=== PATIENT | male | born 1970 | race Caucasian/White ===

== ENCOUNTER 2016-11-27 14:14 | Observation (INO) | payer OTHER ==
[~2016-11-27] VITALS: Ht 190.5 cm; Wt 113.4 kg
[~2016-11-27 14:14] MED LIST: AMOXICILLIN500 MG PO; FLEXERIL10 MG PO; NAPROXEN500 MG PO; PROAIR HFA0.09 MG/Ac INH; ZANTAC150 M1 PO
--- NOTE | 2016-11-27 14:26 | NUR ---
STATES TIGHTNESS IN CHEST DURING LUNCH TODAY. UNABLE TO TAKE DEEP BREATH, BECAME VERY HOT WITH H/A AND LIGHTHEADED. STATES PAIN GOES INTO HIS BACK. STATES PAIN HAS GOTTEN A LITTLE BETTER
--- NOTE | 2016-11-27 14:37 | NUR ---
APPRECIATE TRIAGE NOTE. PT AMBULATORY TO ROOM 16 WITH SPOUSE. OFFERS NO COMPLAINTS AT THIS TIME. CHANGING INTO HOSPITAL GOWN AND PLACED ON CM AT THIS TIME.
--- NOTE | 2016-11-27 14:43 | RADIOLOGY REPORT ---
EXAMINATION: XR CHEST CLINICAL INFORMATION: Chest pain. COMPARISON: None. TECHNIQUE: PA and lateral views of the chest were obtained. FINDINGS: The lungs are well-expanded and clear without focal airspace consolidation. No pleural effusions or pneumothoraces are identified. Cardiomediastinal contours are within normal limits. Soft tissues are unremarkable. No acute osseous abnormality is identified. IMPRESSION: No acute pulmonary process.
--- NOTE | 2016-11-27 14:53 | NUR ---
BLOOD DRAWN AND SENT TO LAB. SST,LAV,BLUE AND SCANT AMOUNT IN TORRES
[2016-11-27 15:00] LABS: ABSOLUTE BASOPHIL COUNT 0 /CUMM (0.0-0.2); ABSOLUTE EOSINOPHIL COUNT 0.2 /CUMM (0.0-0.7); ABSOLUTE GRANULOCYTE CT 5.7 /CUMM (1.4-6.5); ABSOLUTE LYMPH COUNT 1.6 /CUMM (1.2-3.4); ABSOLUTE MONOCYTE COUNT 0.6 /CUMM (0.10-0.60); BASOPHIL % 0.4 % (0.0-2.0); GRANULOCYTE % 69.5 % (42.2-75.2); HEMATOCRIT 42.3 % (42-52); MEAN CORPUSCULAR HGB 29.4 PG (27.0-31.0); MEAN CORPUSCULAR HGB CONC 33.8 G/DL (33.0-37.0); MEAN CORPUSCULAR VOLUME 87.1 FL (80.0-94.0); MEAN PLATELET VOLUME 6.5 FL (7.4-10.4); PLATELET COUNT 289 /CUMM (130-400); RBC DISTRIBUTION WIDTH 13.5 % (11.5-14.5); RED BLOOD CELL CT 4.86 /CUMM (4.70-6.10); WHITE BLOOD CELL COUNT 8.2 /CUMM (4.8-10.8)
--- NOTE | 2016-11-27 15:16 | NUR ---
PA STUDENT CHLOÉ PT.
--- NOTE | 2016-11-27 15:31 | ED CARDIAC/CP/PALPITATIONS ---
History of Present Illness General Chief Complaint: Chest Pain Stated Complaint: CP Source: patient Exam Limitations: no limitations Vital Signs & Intake/Output Vital Signs & Intake/Output Vital Signs Date Time Temp Pulse Resp B/P B/P Pulse O2 O2 Flow FiO2 Mean Ox Delivery Rate 11/28 0650 97.0 117 20 120/90 96 Room Air 11/28 0000 Room Air 11/27 2030 97.7 73 20 148/90 94 Room Air 11/28 2007 97.5 72 18 134/76 98 Room Air Room Air 11/27 1820 97.4 68 140/83 97 Room Air 11/27 1426 97.5 81 20 125/76 95 Room Air ED Intake and Output 11/28 0000 11/27 1200 Intake Total 240 Output Total Balance 240 Intake, Oral 240 Patient 250 lb Weight Weight Reported by Patient Measurement Method Allergies Coded Allergies: oxycodone (itching 11/27/16) Reconcile Medications Ranitidine HCl (Zantac) 150 MG TABLET 2 TAB PO QPM GI (Reported) Triage Note: STATES TIGHTNESS IN CHEST DURING LUNCH TODAY. UNABLE TO TAKE DEEP BREATH, BECAME VERY HOT WITH H/A AND LIGHTHEADED. STATES PAIN GOES INTO HIS BACK. STATES PAIN HAS GOTTEN A LITTLE BETTER Triage Nurses Notes Reviewed? yes Onset: Abrupt Duration: hour(s): Timing: multiple episodes today Quality/Severity: moderate, severe, sharp Radiation: back Activities at Onset: none HPI: 46-year-old male comes into emergency room with complaints of left-sided chest pain has been going on for the past few hours intermittently. Symptoms began around 12:45 PM. Left sided pain. Sharp. Radiates between his shoulder blades in his back. There is significant family history with multiple uncles having MIs at a young age. Denies any vomiting. Denies any shortness of breath. Nothing seems to make the symptoms better or worse. Denies any belching or burping. Denies any upper abdominal pain. Denies any other associated symptoms. (LUIS FERNANDO DICKEY,HANNAH) Past History Travel History Traveled to [place] past 21 day No Medical History Any Pertinent Medical History? 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 No (HANNAH POZO) Review of Systems Review of Systems Constitutional: Reports: no symptoms. EENTM: Reports: no symptoms. Respiratory: Reports: no symptoms. Cardiovascular: Reports: see HPI. GI: Reports: no symptoms. Genitourinary: Reports: no symptoms. Musculoskeletal: Reports: no symptoms. Skin: Reports: no symptoms. Neurological/Psychological: Reports: no symptoms. Hematologic/Endocrine: Reports: no symptoms. Immunologic/Allergic: Reports: no symptoms. All Other Systems: Reviewed and Negative (HANNAH POZO) Physical Exam Physical Exam General Appearance: well developed/nourished, alert, awake Head: atraumatic Eyes: Bilateral: normal appearance. Ears, Nose, Throat: normal ENT inspection, hearing grossly normal Neck: normal inspection Respiratory: normal breath sounds, no respiratory distress Cardiovascular: regular rate/rhythm Gastrointestinal: soft, non-tender Back: normal inspection Extremities: normal range of motion, no edema Neurologic/Psych: awake, alert Skin: intact, normal color Core Measures ACS in differential dx? Yes Severe Sepsis Present: No Septic Shock Present: No All Positive = PERC Ruled Out: Positive: age < 50 years, heart rate < 100 bpm, O2 sat > 94%, no hemoptysis, no hormone use, no prior DVT or PE, no unilateral leg swellin, no surgery/trauma w/ in 4w. Wells Criteria Score: 0 (HANNAH POZO) Progress Differential Diagnosis: AMI, aortic dissection, cholecystitis, costochondritis, musculoskeletal pain, myocarditis, pancreatitis, pericarditis, pneumonia, pneumothorax, pulmonary embolism, PUD/GERD, rib fracture, sepsis, unstable angina Plan of Care: Orders Procedure Date/time Status Nothing by Mouth 11/28 B Active ECHOCARDIOGRAM 11/28 2012 Active LIPID PANEL 11/28 599 Complete HIGH SENSITIVITY CRP 11/28 06 Complete CBC WITHOUT DIFFERENTIAL 11/28 06 Complete BASIC ELECTROLYTES PLUS BUN&CR 11/28 06 Complete TROPONIN LEVEL 11/28 0100 Complete EKG 11/28 0100 Active STRESS TEST W/NUCLEAR IMAGING 11/28 UNK Active Regular Diet 11/27 D Complete Vital Signs 11/27 2141 Active Teach/Educate 11/27 2141 Active Pain Treatment and Response 11/27 2141 Active Nutritional Intake, Monitor 11/27 2141 Active Isolation 11/27 2141 Active Intake & Output 11/27 2141 Active Patient Care Conference 11/27 2141 Active Activity/Ambulation 11/27 2141 Active Pathway - chart 11/27 2016 Active Add-on Test (ER Only) 11/28 2011 Active Patient Data 11/27 1901 Active TROPONIN LEVEL 11/27 1850 Complete EKG 11/27 1850 Active OXYGEN SETUP (GEN) 11/27 1838 Active Saline Lock 11/[address] in observation 11/27 1838 Active Vital Signs 11/27 1838 Active Activity/Ambulation 11/27 1838 Active Code Status 11/27 1838 Active Telemetry/Bus Inspector 11/27 1725 Active THYROID STIMULATING HORMONE 11/27 1450 Active THYROXINE 11/27 1450 Active GLYCOSYLATED HGB 11/27 1450 Active Intake & Output 11/27 1447 Active TROPONIN LEVEL 11/27 1427 Active COMPREHENSIVE METABOLIC PANEL 11/27 1427 Active CBC WITHOUT DIFFERENTIAL 11/27 1427 Complete EKG 11/27 1416 Active Pathway - chart 11/27 UNK Active VTE Mechanical Prophylaxis 11/27 UNK Active CASE MANAGEMENT CONSULT 11/27 UNK Active STRESS TEST 11/27 UNK Active Current Medications Sig/Claudia Start time Last Medication Dose Stop Time Status Admin Aspirin 81 MG DAILY 11/28 1000 AC (Aspirin) Heparin Sodium 5,000 UNIT Q8 11/27 2200 AC 11/28 (Porcine) 0542 Acetaminophen 650 MG Q8P PRN 11/27 2114 AC 11/27 (Tylenol) 211 Famotidine 20 MG DAILY 11/27 2052 AC 11/27 (Pepcid) 2143 Laboratory Tests 11/28/16 0625: Anion Gap 10, Estimated GFR > 60, BUN/Creatinine Ratio 17.0, C-React Prot High Sens 1.4, Triglycerides 125, Cholesterol 154, LDL Cholesterol, Calc 91, HDL Cholesterol 38 L, Cholesterol/HDL Ratio 4, CBC w Diff NO MAN DIFF REQ, RBC 5.07 , MCV 87.4, MCH 29.6, RDW 13.3, MPV 6.8 L, Gran % 66.1, Lymphocytes % 20.3 L, Monocytes % 8.6, Eosinophils % 4.5, Basophils % 0.5, Absolute Granulocytes 5.1, Absolute Lymphocytes 1.6, Absolute Monocytes 0.7 H, Absolute Eosinophils 0.3, Absolute Basophils 0, PUBS MCHC 33.8 11/28/16 0100: Troponin I < 0.01 11/27/16 1852: Troponin I < 0.01 11/27/16 1450: Anion Gap 8, Estimated GFR > 60, BUN/Creatinine Ratio 18.0, Glucose 101 H, Hemoglobin A1c Pending, Calcium 9.2, Total Bilirubin 0.5, AST 27, ALT 48, Alkaline Phosphatase 74, Troponin I < 0.01, Total Protein 6.3, Albumin 4.1, Globulin 2.2, Albumin/Globulin Ratio 1.9, TSH 1.800, Thyroxine (T4) 9.9, CBC w Diff NO MAN DIFF REQ, RBC 4.86, MCV 87.1, MCH 29.4, RDW 13.5, MPV 6.5 L, Gran % 69.5, Lymphocytes % 19.6 L, Monocytes % 7.5, Eosinophils % 3.0, Basophils % 0.4 , Absolute Granulocytes 5.7, Absolute Lymphocytes 1.6, Absolute Monocytes 0.6, Absolute Eosinophils 0.2, Absolute Basophils 0, PUBS MCHC 33.8 Diagnostic Imaging: Viewed by Me: Radiology Read. Discussed w/RAD: Radiology Read. Radiology Impression: SERVICE DATE: 11/27/16 EXAM TYPE: RAD - XRY-CHEST XRAY, PA AND LATERAL EXAMINATION: XR CHEST CLINICAL INFORMATION: Chest pain. COMPARISON: None. TECHNIQUE: PA and lateral views of the chest were obtained. FINDINGS: The lungs are well-expanded and clear without focal airspace consolidation. No pleural effusions or pneumothoraces are identified. Cardiomediastinal contours are within normal limits. Soft tissues are unremarkable. No acute osseous abnormality is identified. IMPRESSION: No acute pulmonary process. DICTATED BY: DILLON HARRIS MD DATE/TIME DICTATED:11/27/161438 GIN POLE OPERATOR:NANI DATE/TIME TRANSCRIBED:11/27/161438 Initial ED EKG: normal intervals, normal p-waves, normal QRS complex, normal sinus rhythm, rate (75) (HANNAH POZO) Departure Departure Disposition: STILL A PATIENT Condition: Stable Clinical Impression Primary Impression: Chest pain with moderate risk for cardiac etiology Referrals: GUSTAVO MUNOZ,MARIA ELENA Gil (PCP/Family) Departure Forms: Customer Survey General Discharge Information Observation Note Spoke With: AYAN MD,AMBERLY S. Physician Advisor Notified: PAMELA ALONSO DO Place Patient In: Non-ED OBS Care Area Rationale for Observation: My rational for observation is as follows . Patient will require serial troponins. Serial EKGs. Cardiac consultation. Cardiac telemetry. Patient will likely get set up for a stress test. (HANNAH POZO) PA/VICE PRESIDENT RESIDENTIAL SOLAR SALES Co-Sign Statement Statement: ED Attending supervision documentation- x I saw and evaluated the patient. I have also reviewed all the pertinent lab results and diagnostic results. I agree with the findings and the plan of care as documented in the PA's/VICE PRESIDENT [employer]'s documentation. [] I have reviewed the ED Record and agree with the PA's/VICE PRESIDENT [employer]'s documentation. [] Additions or exceptions (if any) to the PAs/VICE PRESIDENT [employer]IDENT[employer] SAL[employer]'s note and plan are summarized below: [] (EKATERINA MUNOZ,MARTHA) Critical Care Note Critical Care Note Critical Care Time: non-applicable (HANNAH POZO)
--- NOTE | 2016-11-27 16:04 | NUR ---
NOBLE ROJO TO BEDSIDE TO DISCUSS RESULTS AND POC.
--- NOTE | 2016-11-27 17:35 | NUR ---
DINNER TRAY ORDERED.
--- NOTE | 2016-11-27 17:43 | NUR ---
DR. BOTELLO TO BEDSIDE FOR EVALUATION AT THIS TIME. PT WAS AMBULATORY TO AND FROM THE BATHROOM AND REPORTED INCREASE IN CHEST PAIN/TIGHTNESS WITH EXERTION.
--- NOTE | 2016-11-27 18:48 | History & Physical ---
AYAN MUNOZ,AMBERLY Matthew 11/27/16 1824: General Information and HPI MD Statement: I have seen and personally examined ZEESHAN CHACON and documented this H&P. The patient is a 46 year old M who presented with a patient stated chief complaint of []. 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 Zeeshan Chacon is a 46-year-old male with a history of asthma and a very strong family history of premature coronary artery disease who presented with complaints of chest discomfort. Mr. Chacon states that he has experienced episodes of intermittent chest discomfort over the past several years but that the situation changed over the past month or so with episodes occurring more frequently. 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 The discomfort was also felt that his back and while this was occurring he had a "sharp" pain of 6/10 intensity 100s left breast. The sharp pain resolved after a few minutes of the constriction persisted for at least an hour and a half and is still intermittently present. He also felt it difficult to "take a deep breath", but denied any other symptoms. He has been having 2-3 episodes a week over this past month that have been of lesser intensity and duration. His father had 2 myocardial infarctions with the first occurring while he was in his mid 50s and has had 3-4 coronary stents placed. His father had 5 brothers 4 of whom succumbed to myocardial infarctions while in their 50s. He denies any history of coronary, valvular, dysrhythmic/conduction disease or cardiomyopathy. He also denies any history of hypertension, dyslipidemia, diabetes mellitus, or tobacco use. Past medical history: Asthma, possible small bowel obstruction s/p exploratory laparotomy, s/p left rotator cuff surgery 01/24/2000. Family history/social history. Premature coronary artery disease on father's side, as above. Mother succumbed to complications of dementia in her early 60s. Never smoked. No significant alcohol. System review: A 14 point system review was obtained and was noncontributory, other than as above. Physical examination: Well-developed, well-nourished middle-aged male in no acute distress. Vital signs: See above. HEENT: Normocephalic, atraumatic, EOMI, moist membranes. Neck: No bruits. Lungs: Clear to auscultation bilaterally. Heart: S1, S2 with no murmur, gallop, or rub appreciated. PMI fifth ICS at MCL. Abdomen: Soft, nontender, positive bowel sounds. Extremities: No edema. Peripheral pulses: Symmetrical and intact. Studies: ECG (11/27/2016) sinus rhythm with nondiagnostic ST elevation in the anterolateral leads. No significant change when compared to previous tracing from 12/30/2014. CXR (11/27/2016) no acute cardiopulmonary process. Troponin I < 0.01 ng/ml Impression: Chest discomfort of uncertain etiology in this middle-aged male with a very strong family history of premature coronary artery disease. Recommendations: * 23 hour observation on telemetry, follow-up electrocardiogram, follow-up troponins. * Schedule for nuclear stress test. * Schedule for echocardiogram. * Fasting lipid panel. * Check glycosylated hemoglobin A1c, free T4, TSH, and high sensitivity C- reactive protein. * DVT prophylaxis. Further recommendations will follow, Thank you. ZOË WELLS 11/27/16 2008: Resident Review Statement Resident Statement: discussed with nutrition internship
--- NOTE | 2016-11-27 18:57 | NUR ---
REPEAT TROPONIN DRAWN AND SENT TO LAB
--- NOTE | 2016-11-27 19:37 | NUR ---
Emergency Dept [facility] Admit Note: To be admitted to [facility] by DR BOTELLO with CHEST PAIN as the diagnosis, to TELE OBS/ [facility] location. Nursing Maintenance Electrician and admitting notified 11/27/16 at 1906 PT WILL GO TO ROOM 185-1
--- NOTE | 2016-11-27 20:06 | NUR ---
REPORT GIVEN TO MICHAEL FERRO. TRANSPORT BOOKED AT THIS TIME.
[2016-11-27 20:30] VITALS: BP 148/90
--- NOTE | 2016-11-27 20:53 | History & Physical ---
RODRÍGUEZRANDALDIEGO 11/27/162052: General Information and HPI MD Statement: I have seen and personally examined ZEESHAN MARROQUIN and documented this H&P. The patient is a 46 year old M who presented with a patient stated chief complaint of chest tightness. Source of Information: patient, family Exam Limitations: no limitations History of Present Illness: Mr Cartagena is a 46-year-old man who was known to be in his usual state of health until this afternoon. He has a past medical history of asthma, intestinal obstruction. He came to [facility] with a chief concern of chest tightness, that occurred in the afternoon on the day of presentation to ED. As per the patient, he has similar complaints for the past few years, with chest tightness, lasting for a few hours with every episode, 6-7/10 in severity, not associated with exertion or relieved at rest; increasing in frequency in the last few months. Last episode 2 weeks ago. This afternoon, after the patient had his lunch and had taken a nap, and while walking back to his desk at work, he experienced chest tightness, associated with sweating, 8-9/10 in severity, radiation to the back, located on the left side of the chest, lasted for over an hour, not associated with any relieving factors. Reported inability to take a deep breath at the time, and had dry cough. Reported lightheadedness at the time of the event, and did not have any loss of consciousness or vision changes. No abdominal pain, dysuria,. No cough, fever or chills. Reported strong family history in second-degree relatives ie, 4/5 paternal uncles who of heart disease. History of coronary artery disease in father. Nonsmoker, nonalcoholic, no use of intravenous drug use. 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 Reported having had a cardiac cath done 3 years ago at [facility] which revealed normal coronaries. Does not see any locker plant attendant. Allergies/Medications Allergies: Coded Allergies: oxycodone (itching 11/27/16) Home Med list Aspirin (Ecotrin*) 81 MG TABLET. 1 TAB PO DAILY heart health Ranitidine HCl (Zantac) 150 MG TABLET 2 TAB PO QPM GI (Reported) Compliance With Home Meds: GOOD Observation Initial Note - I have personally examined ZEESHAN MARROQUIN on 11/27/16 at 2129. The disposition of ZEESHAN MARROQUIN is uncertain at this time and before a determination can be made, he requires a period of observation for the following reasons 1. Serial electrocardiograms, and troponins 2. Rule out ACS 2. Echocardiogram Past History Travel History Traveled to [place] past 21 day No Medical History Gastrointestinal: intestinal obstruction Musculoskeletal: L ROTATOR CUFF Surgical History Surgical History: EXPLORATORY ABD SX L ROTATOR CUFF Past Family/Social History Family History Relations & Conditions if any FATHER (CAD s/p stents, when he was 50). Psychosocial History Smoking Status: Never Smoked ETOH Use: occasional use Illicit Drug Use: denies illicit drug use Functional Ability ADLs Independent: dressing, eating, toileting, bathing. Ambulation: independent IADLs Independent: shopping, housework, finances, food prep, telephone, transportation , medication admin. Review of Systems Review of Systems Constitutional: Reports: see HPI. Denies: chills, fever. EENTM: Denies: visual changes. Cardiovascular: Reports: chest pain. Denies: peripheral edema, syncope. Exam & Diagnostic Data Last 24 Hrs of Vital Signs/I&O Vital Signs Date Time Temp Pulse Resp B/P B/P Pulse O2 O2 Flow FiO2 Mean Ox Delivery Rate 11/27 2029 97.7 73 20 148/90 94 Room Air 11/28 2007 97.5 72 18 134/76 98 Room Air Room Air 11/27 1820 97.4 68 140/83 97 Room Air 11/27 1426 97.5 81 20 125/76 95 Room Air Intake & Output 11/27 1600 11/27 0800 11/27 0000 Intake Total Output Total Balance Patient 250 lb Weight Weight Reported by Patient Measurement Method Physical Exam General Appearance Alert, Oriented X3, Cooperative, No Acute Distress Skin No Rashes, No Breakdown, No Significant Lesion Skin Temp/Moisture Exam: Warm/Dry Sepsis Skin Exam (color): Normal for Ethnicity HEENT Atraumatic, PERRLA, EOMI Neck Supple, No JVD, No thryomegaly, +2 Carotid Pulse wo Bruit Lymphatic Cervical nl Cardiovascular Regular Rate, Normal S1, Normal S2, No Murmurs Lungs Clear to Auscultation, Normal Air Movement Abdomen Normal Bowel Sounds, Soft, No Tenderness Neurological Normal Speech, Strength at 5/5 X4 Ext, Normal Tone, Sensation Intact, Cranial Nerves 3-12 NL, Reflexes 2+ Extremities No Clubbing, No Cyanosis, No Edema, Normal Pulses Vascular Pulses Symmetrical Assessment/Plan Assessment: He is a middle-age man with a strong family history of heart disease, with no other risk factors is being evaluated for chest discomfort. At the time of admission, vitals-temperature 97.5, pulse rate 81, respiration 20 , blood pressure 125/76, pulse ox 95% on room air. Reymundo is indicated no leukocytosis, H&H normal, normal platelets. Electrolytes, renal function, liver panel-within normal limits. Cardiac enzymes 2 within normal limits. EKG revealed heart rate of 75, normal sinus rhythm, slight left axis deviation, no ST-T wave changes were noted. Neurological findings-chest x-ray did not reveal any acute pulmonary process. Differential diagnosis: #1 acute coronary syndrome #2 unstable angina #3 cardiomyopathy #4 GERD Below is the problem list and plan: #1 chest tightness-patient was already given a loading dose of antiplatelet- aspirin. Currently pain-free. Since the patient has a strong family history, with no EKG changes at this time, a treadmill stress test could be done to risk stratify. Serial echocardiograms and cardiac enzymes to be obtained. Continue aspirin daily. Based on the EKGs treadmill test, further planning for an outpatient workup could be done. Nitroglycerin, if the patient has any chest pain. Monitor vitals closely. Gastroesophageal reflux disease is on the differential. Echocardiogram could be obtained. #2 DVT prophylaxis-heparin subcutaneous changes at this time. As Ranked By This Provider Problem List: 1. Chest pain Core Measures/Miscellaneous Acute Coronary Syndrome ACS Diagnosis: No Cerebrovascular Accident CVA/TIA Diagnosis: No Congestive Heart Failure CHF Diagnosis: No VTE (View Protocol) VTE Risk Factors: Acute medical illness, Age > 40 [facility] d/t: No contraindications No VTE Pharm Prophylaxis d/t: No contraindications VTE Diagnosis: No VTE Type: NONE VTE Confirmed by (Test): NONE Sepsis (View Protocol) Severe Sepsis Present: No Septic Shock Septic Shock Present: No Miscellaneous Documentation Attending Case Discussed With: AYAN MUNOZ,AMBERLY Castro Primary Care Physician: MARIA ELENA CHEN MD Patient sees these Specialists Unknown Level of Patient Care: Telemetry ZOË WELLS 11/27/161: Resident Review Statement Resident Statement: examined this patient, discussed with employee communications intern, agreed with employee communications intern, discussed with family Other Findings: Patient is 46 years old man with PMH of heart burn and intermittent chest pain since a couple of months. Patient was in his usual state of health this morning when he started having chest pain after he walked from his office to the truck and back. Patient states he has been having similar kind of pain since a couple of months now but today's episode was the worst. Patient reported that his chest pain was 8/10 in intensity over precordal area that lasted for an hour. It radiated to his back and was 7/10 in intensity. He also reported of accompanying dizziness and some difficulty breathing. Patient states that he had a similar episode 4-5 years ago. At that time he had his EKG done and was referred to a Boxing And Pressing Supervisor. Patient had a clean cardiac cath at that time and remained chest pain free for some years after that. Patient's hx is significant for heart burn and he takes 300 mg of ranitidine daily as needed. Patient has a positive family hx of heart attacks in his paternal side. His father had his first heartattack at the age of 50. Labs and Vitals as above ECG: HR 72, QTC 425, No ST changes appreciated, regular rate and rhythm Assessment and Plan Will admit the patient to telemetry floor for closer monitoring Will obtain serial troponins and EKG Will check fasting lipid panel and add tsh, T4 to earlier labs Will obtain treadmill stress test in am, patient made NPO after midnight and obtain echocardiogram DVT ppx SC heprin Patient is full code.
[2016-11-28 06:50] VITALS: BP 120/90
[2016-11-28 08:04] LABS: ABSOLUTE BASOPHIL COUNT 0 /CUMM (0.0-0.2); ABSOLUTE EOSINOPHIL COUNT 0.3 /CUMM (0.0-0.7); ABSOLUTE GRANULOCYTE CT 5.1 /CUMM (1.4-6.5); ABSOLUTE LYMPH COUNT 1.6 /CUMM (1.2-3.4); ABSOLUTE MONOCYTE COUNT 0.7 /CUMM (0.10-0.60); BASOPHIL % 0.5 % (0.0-2.0); EOSINOPHIL % 4.5 % (0-5); GRANULOCYTE % 66.1 % (42.2-75.2); HEMATOCRIT 44.3 % (42-52); MEAN CORPUSCULAR HGB 29.6 PG (27.0-31.0); MEAN CORPUSCULAR HGB CONC 33.8 G/DL (33.0-37.0); MEAN CORPUSCULAR VOLUME 87.4 FL (80.0-94.0); MEAN PLATELET VOLUME 6.8 FL (7.4-10.4); PLATELET COUNT 275 /CUMM (130-400); RBC DISTRIBUTION WIDTH 13.3 % (11.5-14.5); RED BLOOD CELL CT 5.07 /CUMM (4.70-6.10); WHITE BLOOD CELL COUNT 7.8 /CUMM (4.8-10.8)
--- NOTE | 2016-11-28 10:55 | PN- Cardiology ---
Subjective Subjective: Admits to mild persistent chest discomfort. No electrocardiographic changes. Rhythm stable on telemetry. Troponins negative 3. Objective Vital Signs and I&Os Vital Signs Date Time Temp Pulse Resp B/P B/P Pulse O2 O2 Flow FiO2 Mean Ox Delivery Rate 11/28 0650 97.0 117 20 120/90 96 Room Air 11/28 0000 Room Air 11/27 2030 97.7 73 20 148/90 94 Room Air 11/28 2007 97.5 72 18 134/76 98 Room Air Room Air 11/27 1820 97.4 68 140/83 97 Room Air 11/27 1426 97.5 81 20 125/76 95 Room Air Intake & Output 11/28 1600 11/28 0800 11/28 0000 11/27 1600 11/27 0800 11/27 0000 Intake Total 300 240 Output Total Balance 300 240 Intake, Oral 300 240 Patient 250 lb 250 lb Weight Weight Reported by Patient Measurement Method Physical Exam: Physical examination: Well-developed, well-nourished middle-aged male in no acute distress. Vital signs: See above. HEENT: Normocephalic, atraumatic, EOMI, moist membranes. Neck: No bruits. Lungs: Clear to auscultation bilaterally. Heart: S1, S2 with no murmur, gallop, or rub appreciated. PMI fifth ICS at MCL. Abdomen: Soft, nontender, positive bowel sounds. Extremities: No edema. Peripheral pulses: Symmetrical and intact. Current Medications: Current Medications Sig/Claudia Start time Last Medication Dose Route Stop Time Status Admin Acetaminophen 1,000 MG ONCE ONE 11/28 0800 DC N/A 1 UNIT IV 11/28 0814 Acetaminophen 650 MG Q8P PRN 11/27 2115 AC 11/27 PO 2110 Aspirin 81 MG DAILY 11/28 1000 AC PO Aspirin 0 .STK-MED ONE 11/27 1622 DC PO Aspirin 325 MG ONCE ONE 11/27 1615 DC 11/27 PO 11/27 1616 1623 Famotidine 20 MG DAILY 11/27 2053 AC 11/27 PO 2144 Heparin Sodium 5,000 UNIT Q8 11/27 2200 AC 11/28 (Porcine) SC 0542 Ibuprofen 600 MG ONCE ONE 11/28 0030 DC 11/28 PO 11/28 0031 0050 Nitroglycerin 0.4 MG DAILY 11/28 0100 DC 11/28 TOP 0057 Nitroglycerin 1 GM .STK-MED ONE 11/28 0050 [facility] 11/28 0051 Results Last 48 Hrs of Labs/Mics: Laboratory Tests 11/28/16 0625: Anion Gap 10, Estimated GFR > 60, BUN/Creatinine Ratio 17.0, C-React Prot High Sens 1.4, Triglycerides 125, Cholesterol 154, LDL Cholesterol, Calc 91, HDL Cholesterol 38 L, Cholesterol/HDL Ratio 4, CBC w Diff NO MAN DIFF REQ, RBC 5.07 , MCV 87.4, MCH 29.6, RDW 13.3, MPV 6.8 L, Gran % 66.1, Lymphocytes % 20.3 L, Monocytes % 8.6, Eosinophils % 4.5, Basophils % 0.5, Absolute Granulocytes 5.1, Absolute Lymphocytes 1.6, Absolute Monocytes 0.7 H, Absolute Eosinophils 0.3, Absolute Basophils 0, PUBS MCHC 33.8 11/28/16 0100: Troponin I < 0.01 11/27/16 1852: Troponin I < 0.01 11/27/16 1450: Anion Gap 8, Estimated GFR > 60, BUN/Creatinine Ratio 18.0, Glucose 101 H, Hemoglobin A1c 5.6, Calcium 9.2, Total Bilirubin 0.5, AST 27, ALT 48, Alkaline Phosphatase 74, Troponin I < 0.01, Total Protein 6.3, Albumin 4.1, Globulin 2.2, Albumin/Globulin Ratio 1.9, TSH 1.800, Thyroxine (T4) 9.9, CBC w Diff NO MAN DIFF REQ, RBC 4.86, MCV 87.1, MCH 29.4, RDW 13.5, MPV 6.5 L, Gran % 69.5, Lymphocytes % 19.6 L, Monocytes % 7.5, Eosinophils % 3.0, Basophils % 0.4, Absolute Granulocytes 5.7, Absolute Lymphocytes 1.6, Absolute Monocytes 0.6, Absolute Eosinophils 0.2, Absolute Basophils 0, PUBS MCHC 33.8 Assessment/Plan Assessment/Plan Chest discomfort of uncertain etiology in this middle-aged male with a very strong family history of premature coronary artery disease. * Imaging stress test performed this morning and no electrocardiographic changes observed. Awaiting nuclear imaging. * Follow-up on echocardiogram. * Continue on telemetry. * Continue DVT prophylaxis. Addendum: Nuclear stress test (11/28/2016): No perfusion abnormalities are present. The gated images are not available for review at the time of this dictation and the wall motion cannot yet be evaluated. An addendum will be dictated when these become available. The ejection fraction is normal. Echocardiogram (11/28/2016): Normal size left ventricle. Mild concentric left ventricular hypertrophy. Normal left ventricular wall motion. Normal left ventricular ejection fraction visually estimated at >65%. "pseudonormal" filling pattern of the left ventricle for age (stage 2 diastolic dysfunction). Moderate right ventricular dilatation. Normal right atrial size. Left atrial size at the upper limits of normal. Trace mitral regurgitation. Trace tricuspid regurgitation. No evidence of pulmonary hypertension. Head CT (11/28/2016): No evidence for acute intracranial injury. Continue telemetry? Yes
[2016-11-28 15:02] VITALS: BP 148/84
[2016-11-28] MEDS ORDERED: ASPIRIN81 M4 PO ×2 (15:37→18:53)
--- NOTE | 2016-11-28 15:43 | Patient Discharge Instructions ---
Discharge Instructions General Discharge Information You were seen/treated for: You are here for the chest pain and we evaluated you for it. Special Instructions: Please follow-up with your PCP within a week of discharge for further management Please follow-up with your power shovel operator helper within a week of discharge for further management and evaluation your cholestrol profile is within normal limits, no need of medication at this point, but since you have family history significant for cardiac disease your power shovel operator helper has recomended to take baby aspirin every day. Diet Recommended Diet: Heart Healthy Activity Full Activity/No Limits: No Activity Self Limited: Yes (as tolerated) Acute Coronary Syndrome Inclusion Criteria At DC or during hospital stay patient has or had the following: ACS DIAGNOSIS No Discharge Core Measures Meds if any: Prescribed or Continued at Discharge Meds if any: NOT Prescribed or Continued at Discharge Congestive Heart Failure Inclusion Criteria At DC or during hospital stay patient has or had the following: CHF DIAGNOSIS No Discharge Core Measures Meds if any: Prescribed or Continued at Discharge Meds if any: NOT Prescribed or Continued at Discharge Cerebrovascular accident Inclusion Criteria At DC or during hospital stay patient has or had the following: CVA/TIA Diagnosis No Discharge Core Measures Meds if any: Prescribed or Continued at Discharge Meds if any: NOT Prescribed or Continued at Discharge Venous thromboembolism Inclusion Criteria VTE Diagnosis No VTE Type NONE VTE Confirmed by (Test) NONE Discharge Core Measures - Per Current guidelines, there needs to be overlap - treatment for the first 5 days of Warfarin therapy. - If discharged on Warfarin prior to 5 days of - overlap therapy, the patient will need to be - assessed for post discharge needs including - *Post discharge parental anticoagulation - *Warfarin and/or parental anticoagulation education - *Follow up date to check INR post discharge At least 5 days overlap therapy as Inpatient No Meds if any: Prescribed or Continued at Discharge Warfarin No Note: Overlap Therapy is Warfarin and Anticoagulant Meds if any: NOT Prescribed or Continued at Discharge
--- NOTE | 2016-11-28 16:21 | CT SCAN REPORT ---
EXAMINATION: CT HEAD WITHOUT CONTRAST CLINICAL INFORMATION: Headache. COMPARISON: None. TECHNIQUE: Contiguous axial images of the brain were obtained without IV contrast. DLP: 691 mGy-cm. FINDINGS: There are no pathologic extra-axial fluid collections. The lateral, third, fourth ventricles are nondilated and concordant with the appearance of the sulci. There is no evidence for acute intraparenchymal hemorrhage or infarct. There is neither mass nor mass effect. There is no shift of midline structures. The paranasal sinuses and mastoid air cells are clear. There are no osseous lesions. IMPRESSION: No evidence for acute intracranial injury.
--- NOTE | 2016-11-28 17:25 | NUCLEAR MEDICINE REPORT ---
EXERCISE STRESS AND RESTING SPECT MYOCARDIAL PERFUSION IMAGING STUDY WITH GATED SPECT IMAGES: CLINICAL INDICATION: Chest pain. PROCEDURE: Regional myocardial perfusion was assessed using a 1 day protocol. Stress images were obtained on 11/28/2016 following the intravenous administration of 27.7 mCi Tc 99m Myoview. Stress was performed using the standard Frankie protocol, with the patient reaching a peak heart rate of 94% maximal predicted heart rate. Rest images were obtained 11/28/2016 following the intravenous administration of 44.8 mCi Technetium 99m Myoview. Single photon emission tomographic (SPECT) images were obtained. SPECT images were acquired in a 64 x 64 matrix of 64 projections over 180 degrees. These were reconstructed into standard short axis, horizontal and vertical long axis cardiac projections. FINDINGS: The post stress images demonstrate the left ventricular chamber to be normal in size. There is homogeneous distribution of activity in the left ventricular myocardium with no regions of abnormally decreased activity noted. The resting images also demonstrate homogeneous distribution of activity in the left ventricular myocardium, and are not significantly changed from the post stress images. The stress images were obtained using a gated SPECT technique, which permits visualization of wall motion and calculation of the left ventricular ejection fraction. The gated images from that study are not available for review at the time of this dictation in the right motion cannot be now evaluated. The calculated left ventricular ejection fraction is 60% on the stress study. No previous study is available for comparison. IMPRESSION: No perfusion abnormalities are present. The gated images are not available for review at the time of this dictation and the wall motion cannot yet be evaluated. An addendum will be dictated when these become available. The ejection fraction is normal.
--- NOTE | 2016-11-28 18:22 | PN- Housestaff ---
Subjective Follow-up For: Chest pain Headache Complaints: Headache Tele-Events Since Last Visit: Normal sinus rhythm, heart rate between 64-74, no any overnight events Subjective: Patient is seen and examined at the bedside. He was complaining of headache. According to him. He was given ibuprofen but it was not helping. We stopped the nitroglycerin patch because it can aggravate the headache. Because patient was nothing by mouth for stress test. We gave IV, Tylenol 1 gram state. Despite of IV Tylenol, headache didnt resolved. But he started eating. We gave 1 dose of ibuprofen. It helped a little bit. Discussed with Dr. Werner over the phone, he suggested to have CT scan of the head. CT scan of the head did not showed any abnormality.Afterwards we decided to give Fioricet. Review of Systems Constitutional: Reports: no symptoms. Neurological/Psychological: Reports: headache. Objective Last 24 Hrs of Vital Signs/I&O Vital Signs Date Time Temp Pulse Resp B/P B/P Pulse O2 O2 Flow FiO2 Mean Ox Delivery Rate 11/28 1502 97.6 94 18 148/84 96 Room Air 11/28 0800 96 Room Air 11/28 0650 97.0 117 20 120/90 96 Room Air 11/28 0000 Room Air 11/27 2030 97.7 73 20 148/90 94 Room Air 11/27 2008 97.5 72 18 134/76 98 Room Air Room Air 11/27 1820 97.4 68 140/83 97 Room Air Intake & Output 11/28 1600 11/28 0800 11/28 0000 Intake Total 580 300 240 Output Total Balance 580 300 240 Intake, IV 100 Intake, Oral 480 300 240 Patient 113.398 kg Weight Physical Exam General Appearance: Alert, Oriented X3, Cooperative, No Acute Distress Cardiovascular: Normal S1, Normal S2 Lungs: Clear to Auscultation, Normal Air Movement Abdomen: Soft, No Tenderness Current Medications: Current Medications Sig/Claudia Start time Last Medication Dose Route Stop Time Status Admin Acetaminophen 1,000 MG ONCE ONE 11/28 0800 DC 11/28 N/A 1 UNIT IV 11/28 0814 0830 Acetaminophen 650 MG Q8P PRN 11/27 2115 AC 11/27 PO 2110 Acetaminophen/ 1 TAB ONCE ONE 11/28 1530 DC 11/28 Butalbital/Caffeine PO 11/28 1531 1740 Aspirin 81 MG DAILY 11/28 1000 AC 11/28 PO 1457 Famotidine 20 MG DAILY 11/27 2053 AC 11/28 PO 1721 Heparin Sodium 5,000 UNIT Q8 11/27 2200 11/28 (Porcine) SC 1445 Ibuprofen 600 MG ONCE ONE 11/28 1330 DC 11/28 PO 11/28 1331 1328 Ibuprofen 600 MG ONCE ONE 11/28 0030 DC 11/28 PO 11/28 0031 0050 Nitroglycerin 0.4 MG DAILY 11/28 0100 NC 11/28 TOP 0057 Nitroglycerin 1 GM .STK-MED ONE 11/28 0050 DC [facility] 11/28 0051 Patient Medication 1 ED .STK-MED ONE 11/28 1346 DC Teaching ED 11/28 1347 Last 24 Hrs of Lab/Kris Results Last 24 Hrs of Labs/Mics: Laboratory Tests 11/28/16 0625: Anion Gap 10, Estimated GFR > 60, BUN/Creatinine Ratio 17.0, C-React Prot High Sens 1.4, Triglycerides 125, Cholesterol 154, LDL Cholesterol, Calc 91, HDL Cholesterol 38 L, Cholesterol/HDL Ratio 4, CBC w Diff NO MAN DIFF REQ, RBC 5.07 , MCV 87.4, MCH 29.6, RDW 13.3, MPV 6.8 L, Gran % 66.1, Lymphocytes % 20.3 L, Monocytes % 8.6, Eosinophils % 4.5, Basophils % 0.5, Absolute Granulocytes 5.1, Absolute Lymphocytes 1.6, Absolute Monocytes 0.7 H, Absolute Eosinophils 0.3, Absolute Basophils 0, PUBS MCHC 33.8 11/28/16 0100: Troponin I < 0.01 11/27/16 1852: Troponin I < 0.01 Assessment/Plan Assessment: Patient is a 46-year-old male presented with complaints of chest discomfort. Assessment * Chest pain under evaluation * Significant family history of TN at the age of [id number] relative, including father and 4 brothers * Asthma * Small bowel obstruction status post exploratory laparotomy * S/p left rotator cuff surgery 01/24/2000 Plan - Chest pain under evaluation- * We will observe the patient to telemetry floor * Serial troponins were negative * Serial EKG showed no any changes * We will to stress EKG/nuclear imaging to rule out stress induced ischemia * If it is positive, then we will plan for coronary angiography and if it is negative, then will discharge patient today * We'll advise him to follow-up with sandfill operator for further management as an outpatient Headache-possibly migraine * Advised him to follow-up with PCP as an outpatient * Continue fiorocet as needed Diet-heart healthy diet DVT prophylaxis-ALP S/heparin CODE STATUS-full code Problem List: 1. Headache 2. Chest pain with moderate risk for cardiac etiology Pain Ratin Pain Location: Headache Pain Goal: Remain pain free Pain Plan: Pain medication according to pain scale Tomorrow's Labs & Rationales: Adalberto require, as patient is discharged DVT/Prophylaxis: mechanical, pharmacological, early ambulation low risk
--- NOTE | 2016-11-28 18:22 | ECHOCARDIOGRAM REPORT ---
ZEESHAN MARROQUIN Age: 46 : 1970 Gender: M Exam Date: 11/28/2016 09:05 Exam Location: [address] Ht (in): 75 Wt (lb): 250 BSA: 2.48 BP: 120 / 90 Ordering Physician: ZOË WELLS MD Referring Physician: ZOË WELLS MD Technologist: Gerry Haji [facility] Room Number: 185-1 Indications: Chest Pain Rhythm: Sinus Technical Quality: Fair FINDINGS Left Ventricle Normal size left ventricle. Mild concentric left ventricular hypertrophy. Normal left ventricular wall motion. Normal left ventricular ejection fraction visually estimated at >65 %. False chordae in the left ventricle (normal variant). "pseudonormal" filling pattern of the left ventricle for age (stage 2 diastolic dysfunction). Right Ventricle Moderate right ventricular dilatation. Right Atrium Normal right atrial size. Left Atrium Left atrial size at the upper limits of normal. Mitral Valve Mitral valve mildly thickened. Trace mitral regurgitation. Aortic Valve Aortic valve not well visualized, grossly normal. No aortic valve stenosis or regurgitation. Tricuspid Valve Structurally normal tricuspid valve. Trace tricuspid regurgitation. No evidence of pulmonary hypertension. Right ventricular systolic pressure estimated at 28 mmHg. Pulmonic Valve Pulmonic valve not well visualized, grossly normal. No pulmonic regurgitation. Pericardium No pericardial effusion. Great Vessels Normal size aortic root. Normal size inferior vena cava. CONCLUSIONS Normal size left ventricle. Mild concentric left ventricular hypertrophy. Normal left ventricular wall motion. Normal left ventricular ejection fraction visually estimated at >65 "pseudonormal" filling pattern of the left ventricle for age (stage 2 diastolic dysfunction). Moderate right ventricular dilatation. Normal right atrial size. Left atrial size at the upper limits of normal. Trace mitral regurgitation. Trace tricuspid regurgitation. No evidence of pulmonary hypertension. Osvaldo Werner M.D. (Electronically Signed) Final Date: 28 November 2016 18:21 MEASUREMENTS (Male / Female) Normal Values 2D ECHO LV Diastolic Diameter PLAX 4.7 cm 4.2 - 5.9 / 3.9 - 5.3 cm LV Systolic Diameter PLAX 2.9 cm 2.1 - 4.0 cm LV Fractional Shortening PLAX 38.3 % 25 - 46 % LV Ejection Fraction 2D Teich 68.5 % IVS Diastolic Thickness 1.3 cm LVPW Diastolic Thickness 1.2 cm LV Relative Wall Thickness 0.5 RV Internal Dim ED PLAX 4.2 cm 1.9 - 3.8 cm LVOT Diameter 2.1 cm Aortic Root Diameter 3.1 cm LA Systolic Diameter LX 4.0 cm 3.0 - 4.0 / 2.7 - 3.8 cm LA Volume 57.0 cm 18 - 58 / 22 - 52 cm Ascending Aorta Diameter 3.1 cm DOPPLER AV Peak Velocity 127.0 cm/s AV Peak Gradient 6.5 mmHg AV Mean Velocity 80.3 cm/s AV Mean Gradient 3.0 mmHg AV Velocity Time Integral 28.7 cm LVOT Peak Velocity 114.0 cm/s LVOT Peak Gradient 5.2 mmHg LVOT Mean Velocity 71.7 cm/s LVOT Mean Gradient 3.0 mmHg LVOT Velocity Time Integral 26.0 cm LVOT Stroke Volume 90.1 cm AV Area Cont Eq vti 3.1 cm AV Area Cont Eq pk 3.1 cm MV Peak Velocity 93.7 cm/s MV Peak Gradient 3.5 mmHg MV Mean Velocity 58.0 cm/s MV Mean Gradient 2.0 mmHg Mitral E Point Velocity 75.5 cm/s Mitral A Point Velocity 70.1 cm/s Mitral E to A Ratio 1.1 MV PHT Velocity 97.7 cm/s MV Deceleration [place] 269.0 cm/s MV Pressure Half Time 109.0 ms MV Area PHT 2.0 cm MV Deceleration Time 306.0 ms TR Peak Velocity 241.0 cm/s TR Peak Gradient 23.2 mmHg Right Atrial Pressure 5.0 mmHg Pulmonary Artery Systolic Pressu 28.2 mmHg Right Ventricular Systolic Press 28.2 mmHg PV Peak Velocity 105.0 cm/s PV Peak Gradient 4.4 mmHg PV Mean Velocity 71.8 cm/s PV Mean Gradient 2.0 mmHg PV Velocity Time Integral 25.5 cm LV E' Lateral Velocity 11.5 cm/s Mitral E to LV E' Lateral Ratio 6.6 LV E' Septal Velocity 6.0 cm/s Mitral E to LV E' Septal Ratio 12.5
[2016-11-28] MEDS ORDERED: ASPIRIN EC81 M1 PO (19:00)
== END 2016-11-28 19:40 ==
LOC: ERH 14:14 → 1NO 18:38 → ERHI 18:38 → ENTRNSPT 20:07 → EDTRNSPTSTS 20:09 → 1NO 20:26 → CMPTRNSPT 20:29 → 1NO 11-28 09:25 → ENPENDDIS 11-28 19:02 → 1NO 11-28 19:40
PROVIDERS: Emergency Medicine; Internal Medicine; ADMIT Internal Medicine Interventional Cardiology
DX: R07.89 Other chest pain (principal); J45.909 Unspecified asthma, uncomplicated; R42 Dizziness and giddiness; R06.00 Dyspnea, unspecified; R12 Heartburn; R51 Headache
CPT/HCPCS: 6020; 36415; 78452; 82436; 93005; 93010; 93016; 93017; 93306; 96372; 96374; A9502; G0378; J0131; J1644; J3490